=== PATIENT | female | born 1940 | race Caucasian/White ===

== ENCOUNTER → 2017-10-05 | Outpatient (CLI) | payer MEDICARE, OTHER ==
[~2017-10-05] MED LIST: ADVI200T17 PO; LEVO.1 PO; MULTTAB67 PO; PRAM0.25 PO
[2017-10-05 09:40] LABS: AUTOMATED NEUTROPHIL # 5.7 TH/MM3 (1.8-7.7); BASOPHIL # 0.1 TH/MM3 (0-0.2); BASOPHIL % 0.7 % (0.0-2.0); EOSINOPHIL # 0.1 TH/MM3 (0-0.4); EOSINOPHIL % 1.3 % (0.0-4.0); HEMATOCRIT 36.6 % (35.0-46.0); HEMOGLOBIN 12.2 GM/DL (11.6-15.3); LYMPH % 20.4 % (9.0-44.0); LYMPHOCYTE # 1.6 TH/MM3 (1.0-4.8); MEAN CELL VOLUME 95.7 FL (80.0-100.0); MEAN CORPUSCULAR HEMOGLOBIN 32.1 PG (27.0-34.0); MEAN CORPUSCULAR HGB CONC 33.5 % (32.0-36.0); MEAN PLATELET VOLUME 7.1 FL (7.0-11.0); MONO % 6.2 % (0.0-8.0); MONOCYTE # 0.5 TH/MM3 (0-0.9); NEUT % 71.4 % (16.0-70.0); PLATELET COUNT 325 TH/MM3 (150-450); RED BLOOD COUNT 3.82 MIL/MM3 (4.00-5.30); RED CELL DISTRIBUTION WIDTH 14.9 % (11.6-17.2); WHITE BLOOD COUNT 7.9 TH/MM3 (4.0-11.0)
[2017-10-05 09:54] LABS: BILIRUBIN, URINE NEG (NEG); BLOOD, URINE NEG (NEG); GLUCOSE,URINE NEG (NEG); KETONE, URINE NEG (NEG); NITRITE,URINE NEG (NEG); URINE COLOR YELLOW (YELLW/STRAW); URINE LEUKOCYTE ESTERASE NEG (NEG)
[2017-10-05 09:54] LABS: INTERNATIONAL NORMALIZED RATIO 1.1 RATIO; PROTHROMBIN TIME - PATIENT 10.7 SEC (9.8-11.6)
[2017-10-05 10:15] LABS: BICARBONATE 27.4 MEQ/L (21.0-32.0); CREATININE 0.84 MG/DL (0.50-1.00)
--- NOTE | 2017-10-06 18:28 | EKG ---
Date Performed: 10/05/2017 Time Performed: 08:27:47 PTAGE: 77 years EKG: Sinus rhythm WITH FIRST DEGREE AV BLOCK ABNORMAL ECG NO PREVIOUS TRACING DOCTOR: Wilver Wilson Interpretating Date/Time 10/06/2017 18:25:31
== END ==
LOC: CPRE 08:03
PROVIDERS: ATTEND Orthopaedic Surgery Orthopaedic Surgery of the Spine
DX: Z01.810 Encounter for preprocedural cardiovascular examination (principal); Z01.812 Encounter for preprocedural laboratory examination; Z79.01 Long term (current) use of anticoagulants; M17.11 Unilateral primary osteoarthritis, right knee; R94.31 Abnormal electrocardiogram [ECG] [EKG]
CPT/HCPCS: 36415; 80048; 81001; 85025; 85610; 85730; 93005

== ENCOUNTER 2017-10-20 05:29 | Inpatient (IN) | payer MEDICARE, OTHER ==
[~2017-10-20] VITALS: Ht 162.6 cm; Wt 60.0 kg
[2017-10-20] MEDS ORDERED: CHLORHEXIDINE GLUCONATE 4% SOLN 120 ML BTL TOPICAL SCH (06:00)
[2017-10-20] MEDS ORDERED: MULTTAB67 PO (06:00)
[2017-10-20] MEDS ORDERED: POVIDONE IODINE 5% (ANTISEPSIS KIT) 4 APPLICATIONS EACH NARE PRN (06:00)
[2017-10-20] MEDS ORDERED: LACTATED RINGER'S 1000 ML IV PRN (06:00)
[2017-10-20] MEDS ORDERED: VANCOMYCIN 1 GM/200 ML INJ 200 ML IV SCH (06:00)
[2017-10-20] MEDS ORDERED: METOPROLOL TARTRATE 25 MG TAB PO PRN (06:00)
[2017-10-20] MEDS ORDERED: ceFAZolin 2 GM PREMIX 50 ML IV SCH (06:00)
[2017-10-20] MEDS ORDERED: SODIUM CHLORID 0.9% 500 ML IV PRN (06:00)
[2017-10-20] MEDS ORDERED: CHLORHEXIDINE GLUCONATE 2 % 1 PACK (2 CLOTHS) TOPICAL PRN (06:00)
[2017-10-20] MEDS ORDERED: GENTAMICIN SULFATE 80 MG/2 ML VIAL ONE (06:12)
[2017-10-20] MEDS ORDERED: BUPIVACAINE/EPINEPHRINE 0.25% 50 ML VIAL ONE (06:35)
[2017-10-20] MEDS ORDERED: BUPIVACAINE HCL PF 0.5% 30 ML VIAL ONE (06:55)
[2017-10-20] MEDS ORDERED: MIDAZOLAM HCL 5 MG/5 ML VIAL ONE (06:55)
[2017-10-20] MEDS ORDERED: TRANEXAMIC ACID IV SCH (07:30)
[2017-10-20] MEDS ORDERED: EXPAREL PERI-ARTICULAR INJECTION (TOTAL VOL. 60 ML) P-ARTICULR SCH ×2 (07:30)
[2017-10-20] MEDS ORDERED: SODIUM CHLORIDE 0.9% IV SCH (07:30)
[2017-10-20] MEDS ORDERED: BUPIVACAINE/EPINEPHRINE 0.25% PF 10 ML VIAL ONE (07:45)
[2017-10-20] MEDS ORDERED: DEXAMETHASONE SOD PHOS 4 MG/ML VIAL ONE (09:02)
[2017-10-20] MEDS ORDERED: TEMAZEPAM 15 MG CAP PO PRN (09:45)
[2017-10-20] MEDS ORDERED: NALOXONE HCL 0.4 MG/ML AMP IV PUSH PRN (09:45)
[2017-10-20] MEDS ORDERED: MORPHINE SULFATE 8 MG/ML INJ IM PRN (09:45)
[2017-10-20] MEDS ORDERED: MISCELLANEOUS NURSING INFORMATION XX PRN (09:45)
[2017-10-20] MEDS ORDERED: MISCELLANEOUS PHARMACY INFORMATION XX ONE (09:45)
--- NOTE | 2017-10-20 09:49 | PD.OP ---
cc: Urban Phelan MD Operative Report Date of Surgery: Oct 20, 2017 Preoperative Diagnosis: Osteoarthritis right knee. Valgus deformity, right knee Postoperative Diagnosis: Procedure: Right total knee replacement arthroplasty, posterior stabilized Anesthesia: Gen. with regional for pain control Surgeon: Urban Phelan Water Meter Reader(s): MICAH Quintana Operation and Findings: EBL: 50 cc INDICATION: This patient presents with long-standing arthritis of the knee. Attachment record documents conservative measures. The patient now presents for surgical treatment. NOTE: Marcia Quintana PA-C was present for the entire surgical procedure as my first aid teacher. In my medical opinion her skill and care was necessary for proper management of this patient. TOURNIQUET TIME: 80 minutes COMPANY: [employer] FEMUR: Size 6, posterior stabilized TIBIA: Size 5, fixed bearing PATELLA: 32 mm POLYETHYLENE INSERT: 11 mm PROCEDURE: This patient was brought the operating room and anesthetized in the supine position. The patient was positioned supine on the table. The tourniquet was placed about the thigh, and the leg was scrubbed with alcohol followed by Hibiclens followed by ChloraPrep and draped sterilely. A timeout was done, and antibiotics were given. After exsanguination the tourniquet was inflated to 250 mmHg. An anterior incision was made and a median parapatellar arthrotomy was performed. The patella was released laterally and subluxed allowing freehand cut of the patella which was then sized. A metal cap was placed over the exposed patellar surface for protection. A boat pilot hole was placed in the distal femur allowing a 5 valgus cut removing 10 mm from the distal femur. Anterior posterior and chamfer cuts were made. The posterior stabilize osteotomy was made. The attention was directed to the tibia. Retractors were positioned. The external alignment guide was used allowing the lateral tibia to be used as referencing guide and cut utilizing an oscillating saw taking care to avoid any injury to the surrounding soft tissues. This was sized properly. Trial reduction showed that the insert fit nicely. The patient had range of motion extension 0 flexion 125. A medial release was not necessary. The bony surfaces prepared. On the back table 2 packets of methylmethacrylate were mixed. The components were cemented. Excess cement was removed. The tourniquet let down and hemostasis was controlled. The final plastic insert was inserted. Range of motion was the same as previously noted. The arthrotomy was repaired with interrupted #1 Vicryl suture, subcutaneous tissue 2-0 Vicryl suture and skin with metallic stephan A sterile dressing was applied. Sponge counts, needle counts and instrument counts were all correct. The patient tolerated procedure well and was taken to recovery in satisfactory condition. FINDINGS: There was severe osteoarthritis especially of the lateral compartment with erosion of the tibial bone stock. There was a hypoplastic lateral femoral condyle Urban Phelan MD Oct 20, 2017 09:49
[2017-10-20] MEDS ORDERED: ECASA81 PO (09:53)
[2017-10-20] MEDS ORDERED: OXYC1TAB63 PO (09:53)
[2017-10-20] MEDS ORDERED: Post-op Orders (for Pharmacy) XX ONE (09:54)
[2017-10-20] MEDS ORDERED: *morphine SULFATE 4 MG/ML PERIprocedure ONLY ONE ×2 (10:13→10:21)
[2017-10-20] MEDS: LACTATED RINGER'S 1000 ML INJ 1,000 ML IV SCH ×2 (10:35→21:26)
--- NOTE | 2017-10-20 11:04 | RADRPT ---
EXAM DATE/TIME: 10/20/2017 10:08 [facility] COMPARISON: No previous studies available for comparison. INDICATIONS : Post op right knee surgery MEDICAL HISTORY : None. SURGICAL HISTORY : None. ENCOUNTER: Initial ACUITY: 1 day PAIN SCORE: 6/10 LOCATION: Right knee FINDINGS: Two view examination of the right knee demonstrates right knee arthroplasty. Postsurgical changes. No evidence of fracture or dislocation. CONCLUSION: Right knee arthroplasty. Carlos Vera MD on October 20, 2017 at 11:03 Board Certified Radiologist. This report was verified electronically.
[2017-10-20] MEDS ORDERED: DO NOT ADM ANY ANTICOAGULANT DRUGS PRN (11:45)
[2017-10-20] MEDS ORDERED: PROPOFOL 200 MG/20 ML AMP IV ONE (12:00)
[2017-10-20] MEDS ORDERED: oxyCODONE/ACETAMINOPHEN 5 MG/325 MG TAB PO PRN (12:00)
[2017-10-20] MEDS ORDERED: DEXAMETHASONE SOD PHOS 4 MG/ML VIAL IV ONE (12:00)
[2017-10-20] MEDS ORDERED: LIDOCAINE HCL 1% PF 5 ML SYRINGE OTHER ONE (12:00)
[2017-10-20] MEDS ORDERED: ASPIRIN EC 81 MG TABEC PO ONE (12:00)
[2017-10-20] MEDS ORDERED: ONDANSETRON HCL 4 MG/2 ML VIAL IV ONE (12:00)
[2017-10-20 13:00] VITALS: BP 121/78; PULSE 74; RESP 18; TEMP 95.9; O2SAT 98
[2017-10-20 16:00] VITALS: BP 112/69; PULSE 81; RESP 18; TEMP 97.6; O2SAT 98
[2017-10-20] MEDS: oxyCODONE/ACETAMINOPHEN 5 MG/325 MG TAB PO PRN ×2 (16:37→21:31)
[2017-10-20] MEDS ORDERED: COMMODE 3-IN-11 MIS (19:57)
[2017-10-20] MEDS ORDERED: WALKER WHEELS/F1 MIS (19:57)
[2017-10-20] MEDS ORDERED: CPMMACHINE (19:59)
[2017-10-20 20:00] VITALS: BP 118/68; PULSE 70; RESP 18; TEMP 96.3; O2SAT 99
--- NOTE | 2017-10-20 20:00 | HHI.DCPOC ---
Discharge Care Plan Diagnosis: (1) Osteoarthritis of right knee Your Health Problems Are: Difficulty with ADL Incision/Drains Swelling Goals to Promote Your Health * To prevent worsening of your condition and complications * To maintain your health at the optimal level Directions to Meet Your Goals Take your medications as prescribed Follow your dietary instruction Follow activity as directed Keep your appointments as scheduled Take your immunizations and boosters as scheduled If your symptoms worsen call your PCP, if no PCP go to Urgent Care Center or Emergency Room Smoking is Dangerous to Your Health. Avoid second hand smoke Call the 24-hour hour crisis hotline for domestic abuse at Josiane Case Oct 20, 2017 20:00
--- NOTE | 2017-10-20 20:02 | HHI.FF ---
Face to Face Verification Diagnosis: (1) Osteoarthritis of right knee Physical Therapy Gait training, Safety evaluation, Transfer training, bed to chair Knee: Total knee, Protocol: Right, Gait training, Full weight bearing Canvas Knee Splint: Other Right LE Weight Bearing: WB as tolerated Additional Instructions PT 4 days/wk for 2 weeks. WBAT RightLE. TKA protocol. CKS when in bed for 3- 4 weeks. Walker as needed for gait assistance. CPM bid as tolerated, 0-60 with goal 100 flexion. Nursing RN Days per Week: 2 x Week(s): 1 Dressing Changes: Do not change dressing Additional Instructions Vitals assessment. Dressing assessment - do not change unless saturated. I have seen patient Crissy Perkins on 10/20/17. My clinical findings support the need for the requested home health care services because: Limited ability to care for self High risk of falls I certify that my clinical findings support that this patient is homebound because: Post-op weakness Unsteady gait/balance Josiane Case Oct 20, 2017 20:02
--- NOTE | 2017-10-20 20:09 | HHI.DS ---
Discharge Summary Admission Date Oct 20, 2017 at 05:29 Discharge Date: Oct 21, 2017 Admitting Diagnosis see below Diagnosis: (1) Osteoarthritis of right knee Diagnosis: Principal ICD Codes: M17.11 - Unilateral primary osteoarthritis, right knee Procedures Right total knee arthroplasty, posterior stabilized Brief History This is a 77 year old female patient with a 2-3 year history of right knee pain. She sustained a tear to her meniscus and underwent arthroscopic surgery in 2014. She pursued physical therapy for a period of time. Her pain began to increase substantially over the last year. She stopped going to the gym. She stopped dancing. She began taking larger amounts of nonsteroidal medications. She acquired a limp with transitional movements. Imaging studies were performed showing severe lateral compartment arthritis with a valgus deformity. Surgical treatment was recommended in the form of right total knee arthroplasty. She agreed and now presents for the above procedure. Hospital Course Surgical treatment was performed on the day of admission without complication. She recovered well in PACU and was transferred to the orthopaedic floor. Pain was controlled with IV and oral medications. DVT prophylaxis was initiated with 2 ASA 81mg. She was compliant with physical therapy and all total knee precautions including use of her CPM. After 1 day she was found to be stable and discharged home with home health care. She was instructed to continue her therapy, to not change her surgical dressing and to ice the operative site twice daily. The patient was given prescriptions for oxycodone 5mg and ASA 81mg to be taken twice daily. Pt Condition on Discharge: Stable Discharge Disposition: Disch w/ Home Health Serv Discharge Instructions Diet Instructions: As Tolerated, No Restrictions, High Fiber Diet Activities You Can Perform: Weight Bearing as Mu Activities to Avoid: Strenuous Activity Additional Activity Instruc.: TKA protocol New Medications: Commode 3-in-1 (Commode 3-in-1) 1 Mis Mis EA .XX DIRECTED, #1 0 Refills CPM-Continuous Passive Motion Machine (CPM-Continuous Passive Motion Machine) 1 Ea Device EA .XX DIRECTED, #1 0 Refills Walker with Front Wheels (Walker with Front Wheels) 1 Mis Mis EA .XX DIRECTED, #[address] (Aspirin DR) 81 Mg Tabdr 81 MG PO BID for Prevent Blood Clot, #60 TAB Oxycodone HCl/Acetaminophen (Oxycodone-Acetaminophen 5-325) 5 Mg-325 Mg Tablet 1 TAB PO Q4H PRN for pain, #50 TAB Continued Medications: Ibuprofen-Diphenhydramine (Advil Pm) 200-38 Mg Tab 2 TAB PO BID PRN for PAIN/SLEEP, TAB 0 Refills Levothyroxine (Synthroid) 100 Mcg Tab 100 MCG PO DAILY for Thyroid, #30 TAB 0 Refills Multiple Vitamin (Multiple Vitamin) 1 Tab 1 TAB PO DAILY for Nutritional Supplement, TAB 0 Refills Pramipexole (Pramipexole) 0.25 Mg Tab 2 TAB PO HS for Parkinson Disease Mgmt, #30 TAB 0 Refills Josiane Case Oct 20, 2017 20:09
[2017-10-20] MEDS ORDERED: SENNOSIDES 8.6 MG TAB PO SCH (21:00)
[2017-10-20] MEDS ORDERED: PRAMIPEXOLE DIHYDROCHLORIDE 0.25 MG TAB PO SCH (21:00)
[2017-10-20] MEDS: MAGNESIUM HYDROXIDE SUSP 30 ML CUP PO SCH (21:24)
[2017-10-20] MEDS: ASPIRIN EC 81 MG TABEC PO SCH (21:24)
[2017-10-21] VITALS: BP 102/68; PULSE 71; RESP 18; TEMP 98.2; O2SAT 98
[2017-10-21 04:00] VITALS: BP 101/62; PULSE 65; RESP 20; TEMP 97.7; O2SAT 98
[2017-10-21] MEDS ORDERED: LEVOTHYROXINE SODIUM 100 MCG TAB PO SCH (06:00)
[2017-10-21 06:19] LABS: HEMATOCRIT 25.6 % (35.0-46.0); HEMOGLOBIN 8.8 GM/DL (11.6-15.3)
[2017-10-21] MEDS: ASPIRIN EC 81 MG TABEC PO SCH (07:36)
[2017-10-21] MEDS: LACTATED RINGER'S 1000 ML INJ 1,000 ML IV SCH (07:37)
[2017-10-21] MEDS: MAGNESIUM HYDROXIDE SUSP 30 ML CUP PO SCH (07:37)
[2017-10-21 07:48] VITALS: BP 99/64; PULSE 69; RESP 18; TEMP 97.4; O2SAT 98
[2017-10-21 12:00] VITALS: BP 124/68; PULSE 67; RESP 18; TEMP 96.1; O2SAT 97
--- NOTE | 2017-10-21 12:45 | PD.ORT.PN ---
Subjective Subjective Remarks She is doing well. She struggled getting sleep last night but states her pain is 'as expected'. She denies any new radiating leg pain, CP or SOB. She feels she is doing well overall. Ready for d/c home today. Objective Vitals Vital Signs Date Time Temp Pulse Resp B/P (MAP) Pulse Ox O2 Delivery O2 Flow Rate FiO2 10/21/17 12:00 96.1 67 18 124/68 (86) 97 10/21/17 08:50 18 10/21/17 07:48 97.4 69 18 99/64 (76) 98 10/21/17 04:00 97.7 65 20 101/62 (75) 98 10/21/17 00:00 98.2 71 18 102/68 (79) 98 10/20/17 22:35 18 10/20/17 20:00 96.3 70 18 118/68 (85) 99 10/20/17 16:00 97.6 81 18 112/69 (83) 98 10/20/17 13:00 95.9 74 18 121/78 (92) 98 I/O 10/20/17 10/20/17 10/20/17 10/21/17 10/21/17 10/21/17 07:00 15:00 23:00 07:00 15:00 23:00 Intake Total 1980 ml 480 ml 480 ml Output Total 3075 ml Balance -1095 ml 480 ml 480 ml Intake Oral 480 ml 480 ml 480 ml IV Total 1500 ml Output Estimated Blood Loss 75 ml Other 3000 ml # Voids 1 1 2 # Bowel Movements 0 0 Result Diagram: 10/21/17 0558 Procedures Right total knee arthroplasty, posterior stabilized Objective Remarks Sitting up in chair With daughter NAD VSS RLE Knee dressing c/d/i, no drain, mild swelling but no erythema Thigh and calf both supple, neg homans +motor at, +sens, +nvi Assessment & Plan Ortho Post Op Day #: 1 Problem List: (1) Osteoarthritis of right knee ICD Codes: M17.11 - Unilateral primary osteoarthritis, right knee Qualifiers: Qualified Codes: M17.11 - Unilateral primary osteoarthritis, right knee Assessment and Plan pod#1 s/p R TKA, posterior stabilized Ortho stable. Pain controlled on PO meds. Ok to d/c home w [facility] after PT today. Oxycodone 5mg as needed. ASA 81mg twice daily. Mild postop anemia. Hg 8.8. Encouraged hydration and OTC Iron supplementation. Hold dressing changes unless saturated. Outer JUDE wrap can be removed. Do not remove incision dressing. PT - WBAT RLE. TKA precautions. CPM twice daily as tolerated. CKS when in bed for 3-4 weeks. F/U in 2 weeks as scheduled. F2F written. Josiane Case Oct 21, 2017 12:45
[2017-10-21] MEDS: oxyCODONE/ACETAMINOPHEN 5 MG/325 MG TAB PO PRN (12:46)
== END 2017-10-21 14:08 | disposition home health service (06) | DRG 470 ==
LOC: HSDI 05:29 → N06B 12:55
PROVIDERS: ADMIT Orthopaedic Surgery Orthopaedic Surgery of the Spine; ATTEND Orthopaedic Surgery Orthopaedic Surgery of the Spine
PROC: 0SRC0J9 Replacement of Right Knee Joint with Synthetic Substitute, Cemented, Open Approach (ICD-10-PCS; principal; 2017-10-20 07:14)
DX: M17.11 Unilateral primary osteoarthritis, right knee (principal); D64.9 Anemia, unspecified; E03.9 Hypothyroidism, unspecified; G25.81 Restless legs syndrome; M21.061 Valgus deformity, not elsewhere classified, right knee
CPT/HCPCS: 73560; 85014; 85018; 86850; 86890; 86900; 86901; 86920; 94150; C1776; C9290; J0690; J1100; J1580; J2250; J2270; J2405; J3010; J3370; J7120; L1830